=== PATIENT | female | born 1930 | race Asian ===

== ENCOUNTER 2021-11-27 08:48 | Emergency (ER) | payer OTHER ==
[~2021-11-27] VITALS: Ht 152.4 cm; Wt 45.8 kg
--- NOTE | 2021-11-27 09:00 | NUR ---
BIBRA 860 FOR UNWITNESSED FALL. PER REPORT, PT WAS FOUND AT BEDSIDE DURING AM ROUNDS AT FACILITY WHERE PT RESIDES. NOTED W/ LUE/ANDREIA BRUISING W/ GROSS DEFORMITY NOTED STAFF RADIOGRAPHER. TO ER BED 9.
--- NOTE | 2021-11-27 09:30 | NUR ---
IV LINE ESTABLISHED ON [facility]ILL[facility] #20, BLOOD DRAWN AND SENT TO LAB
--- NOTE | 2021-11-27 09:36 | NUR ---
TECH AT BEDSIDE FOR EKG
--- NOTE | 2021-11-27 09:40 | NUR ---
COVID SWAB COLLECTED AND SENT TO LAB
--- NOTE | 2021-11-27 09:45 | NUR ---
PT TAKEN TO RADIOLOGY
[2021-11-27 09:51] LABS: BASOPHILS % (AUTO) 0.1 % (0.0-2.0); HEMATOCRIT 33 % (33-45); LYMPHOCYTES # (AUTO) 0.7 K/uL (0.8-4.8); LYMPHOCYTES % (AUTO) 10.6 % (20.0-44.0); MEAN CORPUSCULAR HGB CONC 34 g/dl (31.0-36.0); MEAN CORPUSCULAR VOLUME 99 fL (82-100); MONOCYTES # (AUTO) 0.5 K/uL (0.1-1.30); MONOCYTES % (AUTO) 6.8 % (2.0-12.0); NEUTROPHILS # (AUTO) 5.6 K/uL (1.8-8.9); NEUTROPHILS % (AUTO) 82.5 % (43.0-81.0); PLATELET COUNT (AUTO) 160 K/uL (150-450); RED BLOOD CELL COUNT(AUTO) 3.31 MIL/uL (4.0-5.2); WHITE BLOOD COUNT (AUTO) 6.8 K/uL (4.3-11.0)
[2021-11-27 10:06] LABS: CALCIUM, SERUM 8.4 mg/dL (8.5-10.1); CARBON DIOXIDE 30 mmol/L (21-32); CHLORIDE 105 mmol/L (98-107); CREATININE 0.7 mg/dL (0.6-1.3); GLUCOSE 130 mg/dL (74-106); POTASSIUM 3.9 mmol/L (3.5-5.1); SODIUM SERUM 139 mmol/L (136-145); UREA NITROGEN, BLOOD 14 mg/dL (7-18)
[2021-11-27 10:11] LABS: ALANINE AMINOTRANSFERASE 21 U/L (12-78); ALBUMIN 3.4 g/dL (3.4-5.0); ALKALINE PHOSPHATASE 51 U/L (46-116); ASPARTATE AMINOTRANSFERASE 19 U/L (15-37); BILIRUBIN,DIRECT 0.2 mg/dL (0.0-0.2); BILIRUBIN,TOTAL 0.9 mg/dL (0.2-1.0); TOTAL PROTEIN, SERUM 6.7 g/dL (6.4-8.2)
--- NOTE | 2021-11-27 10:28 | NUR ---
CANDACE (SON) [phone], PROVIDED UPDATE ON PT.
--- NOTE | 2021-11-27 10:37 | NUR ---
[place] [facility] PAGED, WAITING FOR CALL BACK.
--- NOTE | 2021-11-27 10:40 | NUR ---
DR. SCHILLING FROM [place], ON THE PHONE WITH DR. HIGGINBOTHAM.
--- NOTE | 2021-11-27 11:53 | NUR ---
TRANSFER INFO: ACCEPTED AT [facility] UNDER DR. SORENSON [phone] FOR REPORT. BLS TRANSPORT ETA 1245 [facility]IA [facility].
[2021-11-27 11:56] VITALS: BP 104/71
--- NOTE | 2021-11-27 12:07 | NUR ---
PT REPORT GIVEN TO JUDY PARISH RN AT [facility]
--- NOTE | 2021-11-27 12:53 | NUR ---
Patient discharged to [facility] via [facility], accompanied by 2 textile stylist. Written and verbal after care instructions given. Family at bedside, verbalizes understanding of instruction.
== END 2021-11-27 12:56 | disposition short-term general hospital (02) ==
LOC: EDSEX 08:48 → ER 08:50
DX: S42.492A Other displaced fracture of lower end of left humerus, initial encounter for closed fracture (principal); W19.XXXA Unspecified fall, initial encounter; Y92.099 Unspecified place in other non-institutional residence as the place of occurrence of the external cause; F03.90 Unspecified dementia, unspecified severity, without behavioral disturbance, psychotic disturbance, mood disturbance, and anxiety; S51.812A Laceration without foreign body of left forearm, initial encounter; E87.2 Acidosis; R94.31 Abnormal electrocardiogram [ECG] [EKG]; Z20.822 Contact with and (suspected) exposure to COVID-19
CPT/HCPCS: 99285; 72125; 29105; 71045; 87426; 73090; 73060; 70450; 85025; 80048; 82550; 87040 ×2; 83605 ×2; 80076; 36415; 84484; 85730; 93005; A6403; C9803